=== PATIENT | male | born 1940 | race Caucasian/White ===

== ENCOUNTER 2018-06-25 15:34 | Outpatient (CLI) | payer MEDICARE, OTHER ==
[2018-06-25 17:01] LABS: #Eosinphils 0.5 thou/uL (0.0-0.7); #Lymphocytes 1.3 thou/uL (1.20-3.40); #Monocytes 0.4 thou/uL (0.11-0.59); #Neutrophils 3.4 thou/uL (1.40-6.50); %Basophils 0.6 % (0.0-1.0); %Lymphocytes 22.6 % (21.0-51.0); %Monocytes 7.8 % (0.0-10.0); Mean Corpuscular HGB CONC 35.7 g/dL (32.0-36.0); Mean Corpuscular Hemoglobin 34.7 pg (27.0-31.0); Mean Corpuscular Volume 97.3 fL (78.0-98.0); Mean Platelet Volume 7.4 fL (7.4-10.4); Platelet Count 137 thou/uL (130-400); RBC Distribution Width 11.9 % (11.5-14.5); Red Blood Cell (RBC) Count 4.33 mill/uL (4.70-6.10); White Blood Cell (WBC) Count 5.6 thou/uL (4.8-10.8)
[2018-06-25 17:30] LABS: ALT (SGPT) 19 U/L (8-55); AST (SGOT) 20 U/L (5-34); Albumin 4.5 g/dL (3.4-4.8); Alkaline Phosphatase 43 U/L (40-150); Anion Gap 14 mmol/L (10-20); BUN (Urea Nitrogen) 20 mg/dL (8.4-25.7); Bilirubin, Total 0.8 mg/dL (0.2-1.2); Calc. Creatinine Clearance 0 mL/min (70-130); Calcium 10.5 mg/dL (7.8-10.44); Carbon Dioxide 25 mmol/L (23-31); Chloride 104 mmol/L (98-107); Estimated GFR-MDRD 43; Globulin 2.9 g/dL (2.4-3.5); Glucose 165 mg/dL (83-110); Potassium 4.5 mmol/L (3.5-5.1); Protein, Total 7.4 g/dL (5.8-8.1); Sodium 138 mmol/L (136-145)
== END 2018-06-25 15:35 | disposition home or self-care (01) ==
LOC: LABBT 15:34
PROVIDERS: ATTEND Internal Medicine Cardiovascular Disease
DX: Z01.812 Encounter for preprocedural laboratory examination (principal); R94.39 Abnormal result of other cardiovascular function study
CPT/HCPCS: 80053; 85025

== ENCOUNTER 2018-07-01 05:49 | Observation (INO) | payer MEDICARE, OTHER ==
[2018-07-01] MEDS ORDERED: Heparin 10,000 UNITS/1 ML VIAL ONE (06:45)
[2018-07-01] MEDS ORDERED: Midazolam HCl 2 mg/2 ml Vial ONE (06:45)
[2018-07-01] MEDS ORDERED: Fentanyl 100 MCG/2 ML VIAL ONE (06:46)
[2018-07-01] MEDS ORDERED: Bivalirudin 250 MG VIAL ONE (07:47)
[2018-07-01] MEDS ORDERED: Adenosine 6 MG/2 ML VIAL ONE (07:48)
[2018-07-01] MEDS ORDERED: Clopidogrel Bisulfate 300 MG TAB ONE (08:20)
[2018-07-01] MEDS ORDERED: Nitroglycerin 100MG/250ML BOT 250 ML ONE (08:20)
[2018-07-01] MEDS ORDERED: Morphine 4 MG/ML VIAL SLOW IVP PRN (09:33)
[2018-07-01] MEDS ORDERED: Nitroglycerin 0.4 MG TAB (25 Tab Bottle) SL PRN (09:33)
[2018-07-01] MEDS ORDERED: Morphine 2 MG/ML SYRINGE SLOW IVP PRN (09:33)
[2018-07-01] MEDS ORDERED: Sodium Chloride 0.9% 1,000 ML IV SCH ×2 (09:45→15:45)
[2018-07-01] MEDS ORDERED: Iopamidol 370 76% 100 ML VIAL ONE (10:00)
[2018-07-01] MEDS ORDERED: Iopamidol 370 76% 50 ML VIAL FS ONE (10:00)
[2018-07-01 15:54] VITALS: BMI 31.2
[2018-07-01] MEDS: Carvedilol 6.25 MG TAB PO SCH ×2 (17:43→17:55)
[2018-07-01] MEDS: Famotidine 20 MG TAB PO SCH (20:22)
[2018-07-01] MEDS ORDERED: Alfuzosin 10 MG TABDR...ER PO SCH (21:00)
[2018-07-01] MEDS ORDERED: Simvastatin 20 MG TAB PO SCH (21:00)
[2018-07-01] MEDS ORDERED: Atorvastatin Calcium 10 MG TAB PO SCH (21:00)
[2018-07-02 05:53] LABS: #Eosinphils 0.6 thou/uL (0.0-0.7); #Lymphocytes 1.3 thou/uL (1.20-3.40); #Monocytes 0.5 thou/uL (0.11-0.59); #Neutrophils 3.1 thou/uL (1.40-6.50); %Basophils 0.7 % (0.0-1.0); %Eosinophils 10.1 % (0.0-10.0); %Lymphocytes 23.7 % (21.0-51.0); %Monocytes 8.7 % (0.0-10.0); %Neutrophils 56.9 % (42.0-75.0); Hemoglobin 12.6 g/dL (14.0-18.0); Mean Corpuscular HGB CONC 35.9 g/dL (32.0-36.0); Mean Corpuscular Hemoglobin 34.9 pg (27.0-31.0); Mean Corpuscular Volume 97.4 fL (78.0-98.0); Platelet Count 109 thou/uL (130-400); Red Blood Cell (RBC) Count 3.59 mill/uL (4.70-6.10); White Blood Cell (WBC) Count 5.5 thou/uL (4.8-10.8)
[2018-07-02 06:11] LABS: ALT (SGPT) 13 U/L (8-55); AST (SGOT) 14 U/L (5-34); Albumin 3.3 g/dL (3.4-4.8); Alkaline Phosphatase 32 U/L (40-150); Anion Gap 11 mmol/L (10-20); BUN (Urea Nitrogen) 18 mg/dL (8.4-25.7); Bilirubin, Total 0.6 mg/dL (0.2-1.2); Calc. Creatinine Clearance 61 mL/min (70-130); Calcium 8.7 mg/dL (7.8-10.44); Carbon Dioxide 20 mmol/L (23-31); Chloride 111 mmol/L (98-107); Estimated GFR-MDRD 57; Globulin 2.3 g/dL (2.4-3.5); Glucose 191 mg/dL (83-110); Potassium 4.1 mmol/L (3.5-5.1); Protein, Total 5.6 g/dL (5.8-8.1); Sodium 138 mmol/L (136-145)
[2018-07-02] MEDS ORDERED: Carvedilol 25 MG TAB PO SCH (08:00)
[2018-07-02] MEDS ORDERED: Fenofibrate Nanocrystallized 145 MG TAB PO SCH (09:00)
[2018-07-02] MEDS ORDERED: Furosemide 20 MG TAB PO SCH (09:00)
[2018-07-02] MEDS ORDERED: Aspirin 325 mg Enteric Coated Tablet PO SCH (09:00)
[2018-07-02] MEDS ORDERED: Clopidogrel Bisulfate 75 MG TAB PO SCH (09:00)
[2018-07-02] MEDS ORDERED: Losartan 25 MG TAB PO SCH (09:00)
[2018-07-02] MEDS: Famotidine 20 MG TAB PO SCH (09:11)
[2018-07-02] MEDS: Carvedilol 6.25 MG TAB PO SCH (09:57)
[2018-07-02 16:06] VITALS: BP 118/60; TEMP 98.2
--- NOTE | 2018-07-03 16:43 | DIS ---
DATE OF ADMISSION: 07/01/2018 DATE OF DISCHARGE: 07/02/2018 DISCHARGE DIAGNOSES: 1. Mid anterior ischemia, fixed defect proximal to distal lateral wall, proximal to mid inferior mantilla. 2. Placement of drug-eluting stent in the radial artery to the LAD, bypass graft in-stent restenosis. 3. Status post two bypass surgeries. 4. Status post multiple interventions in the past. 5. Ischemic cardiomyopathy with last ejection fraction of 35% to 40% in October 2017. However, in April 2018, cardiac PET showed an ejection fraction of 27%. 6. Hypercholesterolemia, under good control. 7. Hypertension, under good control. 8. Type 2 diabetes. 9. Chronic hepatitis C. DISCHARGE MEDICATIONS: Discharge medications will remain the same; 1. Uroxatral 10 mg daily. 2. Aspirin 325 daily. 3. Plavix 75 mg daily. 4. Carvedilol CR 40 mg daily. 5. Vitamin B12 1000 daily. 6. Benadryl 25 mg at bedtime. 7. Fenofibrate 134 mg daily. 8. Furosemide 20 mg q.a.m. 9. Losartan 25 mg daily. 10. Niacin 500 mg at bedtime. 11. Ranitidine 150 at bedtime. 12. Simvastatin 20 mg at bedtime. DISCHARGE DISPOSITION: The patient will be seen in 3 months with complete metabolic profile and fasting lipid profile being obtained. Also, echocardiogram will be performed at that time to reassess left ventricular function. HOSPITAL COURSE: Mr. Boston had been complaining of increasing dyspnea on exertion when he would walk or if he would climb stairs. He also gets this bending over to put on his socks. He denied any chest discomfort. Invasive study showed the above results. He underwent cardiac catheterization. Left ventriculogram was not performed due to a creatinine of 1.57. After the catheterization, he was hydrated overnight. At the time of discharge, creatinine had fallen to 1.23. There was a new 80% left main stenosis. The LAD had a 90% and total occlusion in its proximal portion. The circumflex is totally occluded proximally. The first obtuse marginal filled retrograde from the diagonal graft. The right coronary artery had a 70% proximal, 80% and 100% mid stenosis. The posterior descending filled retrograde from the LAD graft and from the diagonal graft. Bypass grafts revealed patent radial to the LAD, however, there was an 80% in-stent restenosis in the proximal part of the graft, which had been previously stented twice. The diagonal graft was patent. There was a 20% in-stent restenosis of the stent in the diagonal distal to the graft. The right coronary artery graft was occluded, and the right posterior descending graft was occluded. Both of these grafts have been occluded for at least 17 years. He has underwent placement of Synergy drug-eluting stent 3.5 x 28 mm. Final result was excellent. He was observed overnight and then discharged. Job ID: [id number]
--- NOTE | 2018-07-04 15:42 | CCL ---
CARDIAC CATHETERIZATION REPORT: Date; 07/04/18 PROCEDURE: Coronary arteriography bypass graft angiography, intracoronary nitroglycerin, and stent placement in the radial artery to the LAD bypass graft, in-stent restenosis. INDICATION: Abnormal Cardiolite. DESCRIPTION OF PROCEDURE: The patient was brought to the cardiac cathodic protection technician and the right groin was prepped and draped in the usu al fashion. The patient was given Versed 1 mg and Fentanyl 25 mg IV for moderate conscious sedation a nd was monitored throughout the procedure. 1% lidocaine was infiltrated into the right groin. A 6 Calin nch sheath was placed into the right femoral artery and heparin 3,000 units given. A 6 [place] Antoni left-4 followed by a 6 Polish Antoni right-4 was used for coronary arteriography. The right-4 was a lso used to opacify the bypass graft. Films were studied. Angiomax bolus and drip were given. Plavix 600 mg was given. A 6 Polish left-1 gu nacho catheter was inserted and the LAD bypass graft was engaged. A filter wire was inserted; however, would not cross the area of stenosis. This was then removed and a floppy Choice wire was advanced int o the LAD graft. The area was then predilated with Emerge 3.0 x 20 mm balloon. This was removed with the floppy Choice wire remaining in place. After predilatation, the filter wire was then able to be a dvanced into the mid to distal graft. The floppy Choice wire was removed and the filter wire was depl oyed. Synergy 3.5 x 28 mm stent was then positioned and deployed with excellent results. There was ve ry severe limited flow after stent delivery. Prior to stent delivery, Adenosine 30 mcg was given. Aft er stent delivery, three more doses of Adenosine 30 mcg given. Also, intracoronary nitroglycerin 200 mcg were given. It was felt that the poor flow was probably due to spasm of the mid LAD. Initially, t he mid LAD and apical portion of the LAD was not opacified, and after the above medications, there wa s good flow. Also, of note, the right posterior descending filled retrograde a lot more prominently t denny what was noted prior to stent placement. The sheath was sutured in place. The patient was transfe rred to the PCU. RESULTS: CORONARY ARTERIOGRAPHY: 1. The left main had a new 80% stenosis. 2. The LAD had a 90% and a 100% proximal stenosis. 3. The circumflex was totally occluded. The first obtuse marginal filled retrograde from the diagona l graft. 4. The right coronary artery had a 70% proximal stenosis and an 80-100% mid stenosis. The right post erior descending filled retrograde from the LAD graft and the diagonal graft. BYPASS GRAFTS: 1. The radial artery to the LAD had an 80% in-stent restenosis. 2. The diagonal graft was patent. There was a stent distal to the anastomosis which had a 20% in-darcy nt narrowing. 3. The right coronary artery graft was occluded. 4. The right posterior descending graft was occluded. INTERVENTION RESULTS: The initial radial artery to LAD bypass graft lesion was 80% and the final lesion was 0%. IMPRESSION: 1. Left main plus three vessel coronary artery disease. 2. Two of four bypass grafts patent. 3. Successful drug-eluting stent placement in the LAD graft in-stent restenosis.
--- NOTE | 2018-07-05 20:16 | EKG ---
Test Reason : POSTOP Blood Pressure : / mmHG Vent. Rate : 059 BPM Atrial Rate : 059 BPM P-R Int : 162 ms QRS Dur : 142 ms QT Int : 466 ms P-R-T Axes : 013 010 050 degrees QTc Int : 461 ms Sinus bradycardia Right bundle branch block Abnormal ECG When compared with ECG of 16-MAY-2013 16:36, No significant change was found Confirmed by Jerad KENNEDY ([id number]) on 07/05/2018 8:16:14 PM Referred By: [facility] Confirmed By:Jerad KENNEDY
--- NOTE | 2018-07-05 20:28 | EKG ---
Test Reason : Blood Pressure : / mmHG Vent. Rate : 067 BPM Atrial Rate : 067 BPM P-R Int : 170 ms QRS Dur : 138 ms QT Int : 460 ms P-R-T Axes : 058 018 093 degrees QTc Int : 486 ms Sinus rhythm with frequent Premature ventricular complexes in a pattern of bigeminy Right bundle branch block Possible Inferior infarct , age undetermined Abnormal ECG When compared with ECG of 01-JUL-2018 10:08, (Unconfirmed) Premature ventricular complexes are now Present Confirmed by Jerad KENNEDY ([id number]) on 07/05/2018 8:28:52 PM Referred By: [facility] Confirmed By:Jerad KENNEDY
== END 2018-07-02 18:46 | disposition home or self-care (01) ==
LOC: CCL 05:49 → 2SW 15:46
PROVIDERS: ADMIT Internal Medicine Cardiovascular Disease; ATTEND Internal Medicine Cardiovascular Disease
PROC: 4A023N7 Measurement of Cardiac Sampling and Pressure, Left Heart, Percutaneous Approach (ICD-10-PCS; principal; 2018-07-01)
PROC: B2131ZZ Fluoroscopy of Multiple Coronary Artery Bypass Grafts using Low Osmolar Contrast (ICD-10-PCS; 2018-07-01)
PROC: B2101ZZ Fluoroscopy of Single Coronary Artery using Low Osmolar Contrast (ICD-10-PCS; 2018-07-01)
PROC: 027034Z Dilation of Coronary Artery, One Artery with Drug-eluting Intraluminal Device, Percutaneous Approach (ICD-10-PCS; 2018-07-01)
DX: I25.810 Atherosclerosis of coronary artery bypass graft(s) without angina pectoris (principal); I25.82 Chronic total occlusion of coronary artery; T82.855A Stenosis of coronary artery stent, initial encounter; I10 Essential (primary) hypertension; I25.5 Ischemic cardiomyopathy; E78.00 Pure hypercholesterolemia, unspecified; E11.9 Type 2 diabetes mellitus without complications; B19.20 Unspecified viral hepatitis C without hepatic coma; Z88.5 Allergy status to narcotic agent; Z79.82 Long term (current) use of aspirin; Z79.02 Long term (current) use of antithrombotics/antiplatelets; Z79.899 Other long term (current) drug therapy
CPT/HCPCS: 80053; 85025; 85347 ×2; 93005 ×2; 93455; 93798; 96360; 96361 ×2; C1725; C1769 ×2; C1874; C1887; C9600; G0378; 36415; 92928; 93010; 99152; 99153; J0153; J0583; J1644; J2250; J3010

== ENCOUNTER 2020-01-28 05:57 | Observation (INO) | payer MEDICARE, OTHER ==
--- NOTE | 2020-01-28 07:00 | HP ---
HISTORY OF PRESENT ILLNESS: Michael Boston is an 80-year-old white male initially evaluated in March 1990. He had 1 month of chest tightness, radiating to his back that would occur with activities such as mowing the lawn or swimming. Initially , this would last 1 minute, but then started to last up to 30 minutes. He attended an [employer] football game 2 days prior to his initial admission. He had this same chest tightness and frequent belching and left the game because he felt extremely weak. Two days later, he saw Dr. Valorie Bonilla. An electrocardiogram revealed small Q-waves in lead III and AVF along with slight ST-segment elevation and inverted T-wave in lead III and 0.[address]-segment depression in V4 through V6. CK was 131 with an MB of 19.5, however, this was 2 days after his chest pain. He underwent cardiac catheterization and was found to have 3-vessel coronary artery disease with a totally occluded distal right coronary artery. On April 09, 1990, he underwent CABG x3 with BENITO to the LAD, saphenous vein graft to the diagonal and the obtuse marginal. The right coronary artery was not bypassed since there was an area of distinct infarction on the inferior wall and the right coronary artery was totally occluded. He did well after that and was seen on a yearly basis with treadmill testing, exercising up to 9 minutes. He had negative treadmill in September 1998; however, in May 1999, he was cutting his grass and afterwards, he did not feel well. He was then playing golf on June 05, 1999 and developed an episode of left shoulder and left scapular pain that lasted 2 seconds. He then had trouble focusing on the ball while he was putting and when he went to hit his drive, he hit the ground approximately a foot from the ball and decided to go home. He then began to have left arm and left upper back aching that lasted for approximately 2 hours. He did not take any nitroglycerin or seek medical attention. The day after that he called the office and with that history, he was told to come to the emergency room and he had blood test performed and he had positive enzymes, and was admitted. He underwent cardiac catheterization and was found to have all of his 3 grafts occluded - BENITO to the LAD, vein graft to the obtuse marginal, and the diagonal. There was 70% to 80% proximal LAD, total occlusion of the diagonal which filled retrograde, 60% apical LAD, 70% circumflex, total occlusion of the first obtuse marginal which filled retrograde. The right coronary artery was diffusely diseased with 60% to 70% proximal, 70% to 80% mid, and total occlusion of the distal vessel. The distal vessel filled retrograde from the left. There was anterior and apical dyskinesis and moderate inferior and inferobasal hypokinesis with ejection fraction of 30% to 35%. His peak CK was 692. He underwent redo-CABG on June 09, 1999 with left radial artery to the LAD, saphenous vein graft to the diagonal, saphenous vein graft to a trapped isolated segment of the right coronary artery. Vein graft to the right posterior descending artery was piggybacked onto the RCA graft. He had a calcified obtuse marginal and it was felt that there was no target in that vessel. Postoperatively, he did well. In August 1999, he was walking 1.5 miles in 30 minutes and was readmitted in January 2000, when he developed severe back, abdominal, and chest discomfort and became diaphoretic. Sublingual nitroglycerin did not alleviate his pain and was felt not to be a reoperative candidate after his bypass surgery in 1998. He was given Lovenox, topical nitrates and his pain resolved. Chest CT at the time of admission did not reveal any evidence of thoracic aneurysm or dissection. Cardiac enzymes were negative. He underwent cardiac catheterization and was found to have a small area of anterior akinesis and moderate global hypokinesis with ejection fraction of 25% to 30%. The grafts to the right coronary artery and to the right posterior descending were occluded. Saphenous vein graft to the diagonal was patent and there was a 90% stenosis distal to the diagonal graft insertion. The radial artery to the LAD was patent. The [place] vessels revealed 70% proximal LAD, total occlusion of the first diagonal, 80% mid LAD, 70% circumflex, total occlusion of the obtuse marginal which filled retrograde, diffuse disease of the right coronary artery with 60% proximal, 70% to 80% distal and total occlusion of the right posterior descending, and 90% right posterolateral. The distal right filled retrograde from the left. He underwent placement of ARASH [place] 2.5 x 18 mm in the diagonal distal to the graft insertion with excellent result. He was again admitted in February 2000 with an episode of back pain just like he had prior to stent placement. EKG was unremarkable and enzymes were negative. He underwent Cardiolite testing, exercised for 10 minutes with no chest pain or ST-segment changes. The left ventricle was dilated. There was a scar in the lateral wall and a small scar in the anterior wall. There was possible nontransmural infarction of the inferior wall and an ischemia at the lower aspect of the lateral wall with ejection fraction of 34%. He underwent repeat catheterization, which revealed ejection fraction of 30% to 35% with a small area of anterior akinesis, moderate generalized hypokinesis. His anatomy was essentially the same with continued good results of the diagonal stent. It was felt that nothing mechanical could be done at that time and he should be treated medically. In March 2000, he was walking 1 to 1-1/2 miles per day. He was then admitted again in October 2000 after having back and lower chest discomfort after playing golf. He became diaphoretic, took nitroglycerin and came to the emergency room and his pain lasted approximately 1 hour. At catheterization, he had severe left ventricular dysfunction with ejection fraction of 25% to 30%. The diagonal stent continued to have a good result. The radial artery to the LAD had pressure dampening as well as 70% ostial lesion. Tetra 3.0 x 18 mm stent was placed. There was some spasm distal to the stent placement, which resolved with intracoronary nitroglycerin. He presented again in June 2001 with chest discomfort that was similar to what he had previously. He had 2 episodes occurring at rest, which were relieved with 2 sublingual nitroglycerin. At catheterization, he was found to have in-stent restenosis of the left radial to the LAD with a 99% lesion. There was difficulty in engaging this area and this could only be crossed with a Whisper wire. This was dilated and he underwent placement of a Penta 3.5 x 18 mm stent distal to the first stent and then the previous Tetra stent was dilated with a 3.5 mm balloon. He had excellent result and was discharged the following day. Around that time more potent statin drugs were available and finally his LDL was reduced consistently below 70. He then did fairly well from 2001 until September 2017 when he began to complain of dyspnea on exertion with walking or working in the yard. He denied any chest discomfort. He had since developed diabetes and it was felt that the exertional dyspnea was his anginal equivalent. He was placed on Ranexa 500 b.i.d. and then this was increased to 1000 b.i.d., however, he stopped taking that due to lightheadedness. Echocardiogram revealed continued ejection fraction of around 35% to 40%. He began to have rales at the left base and his Lasix was increased from 20 to 40 mg daily. He would continue to have shortness of breath with exertion and underwent a cardiac PET scan. This revealed anterolateral wall ischemia with area of a large-sized scar. He underwent cardiac catheterization on July 01, 2018. Left ventriculogram was not performed due to creatinine of approximately 1.5. This revealed again that his right coronary artery and right posterior descending grafts were occluded. There was a new 80% left main lesion , 90% proximal LAD and a total occlusion of the proximal LAD. There was total occlusion of the proximal circumflex with retrograde filling of the obtuse marginal from the diagonal graft. The right coronary artery was totally occluded in its midportion and filled retrograde from the LAD and diagonal graft. The diagonal graft had a 30% proximal stenosis and continued good results from the ARASH [place] stent in the diagonal distal to the graft insertion. The radial to the LAD had an 80% in-stent restenosis. He then underwent placement of a Synergy 3.5 x 28 mm stent in this area. His exertional dyspnea improved after stent placement, although he would continue to have shortness of breath. However, he did increase his walking up to 2 miles per day and was not significantly dyspneic with that activity. He returned for followup on January 21, 2020, stating that his dyspnea on exertion had returned over the last 3 to 4 months. He can only play 9 holes of golf and is really more fatigued. He denied any chest discomfort. At times, he would become lightheaded and dizzy, and he would check his pressure, it could be as low as in the 80s systolic. He underwent echocardiogram, which revealed that his ejection fraction had fallen from 35% to 40% to 25% to 30%. There was evidence of diastolic dysfunction and he had moderate mitral regurgitation, moderate pulmonic insufficiency, mild tricuspid regurgitation, and aortic valvular sclerosis. With his return of symptoms, it was recommended that he undergo cardiac catheterization. Risks of this were discussed including , myocardial infarction, dye reaction, vascular injury, CVA, transfusion, limb loss, renal loss, etc. Also risk of intervention with stent placement discussed including , myocardial infarction, emergent CABG, restenosis, stent thrombosis, vessel perforation, etc. He understands and agrees to proceed. We did discuss if he does have LAD-radial graft in-stent restenosis that consideration may need to be given to laser therapy at another institution. PAST MEDICAL HISTORY: Diabetes, hypercholesterolemia, hepatitis C, cough with BENJAMIN inhibitor, ischemic cardiomyopathy, hypertension. OPERATIONS: Status post 2 CABGs and multiple stent placements. MEDICATIONS: 1. CoQ10 200 mg daily. 2. Aspirin 325 daily. 3. Carvedilol CR 10 mg daily. 4. Uroxatral 10 mg daily. 5. Ranitidine 150 p.r.n. 6. Nitroglycerin p.r.n. 7. Rosuvastatin 5 mg daily. 8. Avapro 150 one-half tablet daily. 9. Plavix 75 mg daily. 10. Niacin 500 mg at bedtime. 11. Furosemide 20 mg daily. ALLERGIES: COUGH WITH BENJAMIN INHIBITOR AND DEMEROL. 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 He does not smoke or drink. FAMILY HISTORY: Father had myocardial infarction at age 71. Mother had bypass surgery at age 75. REVIEW OF SYSTEMS: A 10-point review of systems is otherwise unremarkable. PHYSICAL EXAMINATION: VITAL SIGNS: Blood pressure 120/55, pulse of 69. HEENT: PERRL. NECK: Supple. CHEST: Clear. CARDIAC: S1 and S2 normal without any S3, S4, or murmurs. Carotid upstrokes are normal without bruits. ABDOMEN: Normal bowel sounds without tenderness. EXTREMITIES: Revealed no clubbing, cyanosis, or edema. NEUROLOGIC: Grossly intact. SKIN: Warm and dry. LABORATORY DATA: Pending. He does have a negative COVID screen. IMPRESSION: 1. Recurrence of exertional dyspnea, which appears to be his anginal equivalent and I am concerned that he may have in-stent restenosis of the drug-eluting stent placed in the radial artery to the left anterior descending bypass graft in June 2018. Another consideration could be the new 80% left main that he had on last catheterization. 2. Status post 2 coronary artery bypass graftings with the right coronary artery and the right posterior descending piggybacked onto the right coronary artery graft being totally occluded for at least 18 years. His radial to the left anterior descending bypass graft has had 3 stents placed in the proximal portion. The diagonal graft was patent on last catheterization. 3. Status post multiple stent placements as noted above. 4. Ischemic cardiomyopathy with ejection fraction dropping from 35% to 40% to 25 % to 30%. 5. Hypercholesterolemia, under good control. 6. Diabetes. 7. Hypertension. 8. Hepatitis C. 9. History of nephrolithiasis. 10. Chronic kidney disease. PLAN: The patient will undergo cardiac catheterization with risks as described above. He will probably need to be hydrated overnight due to slightly elevated creatinine. Consideration could be given to a 4th stent placed in the proximal LAD graft; however, it may be more beneficial to have him undergo laser atherectomy of this area prior to another stent being placed. He understands this and agrees to proceed. Also, a Lifevest will be arranged. Job ID: [id number] MTDD
[2020-01-28] MEDS ORDERED: Heparin 10,000 UNITS/1 ML VIAL ONE (07:23)
[2020-01-28] MEDS ORDERED: Fentanyl 100 MCG/2 ML VIAL ONE (07:35)
[2020-01-28] MEDS ORDERED: Midazolam HCl 2 mg/2 ml Vial ONE (07:35)
[2020-01-28] MEDS ORDERED: Protamine Sulfate 50 MG/5 ML VIAL ONE (07:57)
[2020-01-28] MEDS ORDERED: Acetaminophen/Codeine 30-300mg Tablet PO PRN ×2 (08:05)
[2020-01-28] MEDS ORDERED: Sodium Chloride 0.9% 200 ML IV PRN (08:05)
[2020-01-28] MEDS ORDERED: Nitroglycerin 0.4 MG TAB (25 Tab Bottle) SL PRN (08:05)
[2020-01-28] MEDS ORDERED: Sodium Chloride 0.9% 1,000 ML IV SCH ×2 (08:15→14:15)
[2020-01-28] MEDS ORDERED: Famotidine 20 MG TAB PO PRN (09:31)
[2020-01-28 10:55] VITALS: BMI 27.6
[2020-01-28 15:33] VITALS: BP 135/69; TEMP 98
[2020-01-28] MEDS ORDERED: Rosuvastatin 5 MG TAB PO SCH (21:00)
[2020-01-28] MEDS ORDERED: diphenhydrAMINE 25 MG CAP PO SCH (21:00)
[2020-01-28] MEDS ORDERED: MAGNESIUM PO SCH (21:00)
[2020-01-28] MEDS ORDERED: CALCIUM PO SCH (21:00)
--- NOTE | 2020-01-29 02:48 | DIS ---
DATE OF ADMISSION: 01/28/2020 DATE OF DISCHARGE: 01/28/2020 DISCHARGE DIAGNOSES: 1. In-stent restenosis of proximal radial graft to the left anterior descending with three previous stents placed in this area. 2. Status post two bypass surgeries. 3. Multiple interventions in the past. 4. Ischemic cardiomyopathy with ejection fraction fallen to 25% - 30%. LifeVest ordered. 5. Hypercholesterolemia under good control. 6. Hypertension. 7. Diabetes. 8. Chronic hepatitis C. DISCHARGE MEDICATIONS: Same as on admission. DISCHARGE DISPOSITION: The patient is being transferred to [facility] in [place] for further intervention. HOSPITAL COURSE: Mr. Boston underwent cardiac catheterization, which revealed in-stent restenosis of the proximal radial artery to the LAD graft, where three previous stents have been placed. He also had a patent graft to the diagonal. Right coronary artery and circumflex were totally occluded. He is being transferred to [place] for further care. Job ID: [id number]
[2020-01-29] MEDS ORDERED: Furosemide 20 MG TAB PO SCH (09:00)
[2020-01-29] MEDS ORDERED: Ubidecarenone 50 MG CAP PO SCH (09:00)
[2020-01-29] MEDS ORDERED: Fenofibrate Nanocrystallized 145 MG TAB PO SCH (09:00)
[2020-01-29] MEDS ORDERED: Aspirin 325 mg Enteric Coated Tablet PO SCH (09:00)
[2020-01-29] MEDS ORDERED: Losartan 25 MG TAB PO SCH (09:00)
[2020-01-29] MEDS ORDERED: Clopidogrel Bisulfate 75 MG TAB PO SCH (09:00)
[2020-01-29] MEDS ORDERED: Cyanocobalamin (Vitamin B-12) 1,000 MCG TAB PO SCH (09:00)
[2020-01-29] MEDS ORDERED: Carvedilol 6.25 MG TAB PO SCH (09:00)
== END 2020-01-28 16:10 | disposition short-term general hospital (02) ==
LOC: SDC 05:57 → 2SW 08:05
PROVIDERS: ADMIT Internal Medicine Cardiovascular Disease; ATTEND Internal Medicine Cardiovascular Disease
PROC: 4A023N7 Measurement of Cardiac Sampling and Pressure, Left Heart, Percutaneous Approach (ICD-10-PCS; principal; 2020-01-28)
PROC: B2111ZZ Fluoroscopy of Multiple Coronary Arteries using Low Osmolar Contrast (ICD-10-PCS; 2020-01-28)
PROC: B2131ZZ Fluoroscopy of Multiple Coronary Artery Bypass Grafts using Low Osmolar Contrast (ICD-10-PCS; 2020-01-28)
DX: T82.855A Stenosis of coronary artery stent, initial encounter (principal); I25.5 Ischemic cardiomyopathy; I25.10 Atherosclerotic heart disease of native coronary artery without angina pectoris; I25.810 Atherosclerosis of coronary artery bypass graft(s) without angina pectoris; I25.82 Chronic total occlusion of coronary artery; E78.00 Pure hypercholesterolemia, unspecified; I12.9 Hypertensive chronic kidney disease with stage 1 through stage 4 chronic kidney disease, or unspecified chronic kidney disease; E11.22 Type 2 diabetes mellitus with diabetic chronic kidney disease; N18.9 Chronic kidney disease, unspecified; B18.2 Chronic viral hepatitis C; I37.1 Nonrheumatic pulmonary valve insufficiency; I35.8 Other nonrheumatic aortic valve disorders; Z79.02 Long term (current) use of antithrombotics/antiplatelets; Z79.82 Long term (current) use of aspirin; Z79.899 Other long term (current) drug therapy; Z88.5 Allergy status to narcotic agent; Z88.8 Allergy status to other drugs, medicaments and biological substances; Z95.1 Presence of aortocoronary bypass graft; Z95.5 Presence of coronary angioplasty implant and graft; Z20.828 Contact with and (suspected) exposure to other viral communicable diseases
CPT/HCPCS: 85347; 93455; 94760; G0378; 99152; 99153; J1644; J2250; J2720; J3010; Q9967